=== PATIENT | female | born 1960 | race American Indian/Alaskan Native ===

== ENCOUNTER → 2017-08-31 | Outpatient (CLI) | payer BC | LOC: MAMMO 09:50 → RAD 10:00 → MAMMO 10:00 | DX: Z12.31 Encounter for screening mammogram for malignant neoplasm of breast (principal); R92.8 Other abnormal and inconclusive findings on diagnostic imaging of breast ==

== ENCOUNTER → 2017-09-08 | Outpatient (CLI) | payer BC | LOC: MAMMO 12:00 | DX: C50.312 Malignant neoplasm of lower-inner quadrant of left female breast (principal); R92.8 Other abnormal and inconclusive findings on diagnostic imaging of breast ==

== ENCOUNTER → 2018-03-16 | Outpatient (CLI) | payer BC | LOC: MAMMO 07:16 | DX: Z08 Encounter for follow-up examination after completed treatment for malignant neoplasm (principal); Z85.3 Personal history of malignant neoplasm of breast; Z41.1 Encounter for cosmetic surgery ==

== ENCOUNTER → 2019-04-18 | Outpatient (CLI) | payer BC | LOC: MAMMO 15:59 | DX: Z12.31 Encounter for screening mammogram for malignant neoplasm of breast (principal); R92.0 Mammographic microcalcification found on diagnostic imaging of breast ==

== ENCOUNTER → 2019-04-26 | Outpatient (CLI) | payer BC | LOC: MAMMO 12:00 | DX: R92.2 Inconclusive mammogram (principal) ==

== ENCOUNTER → 2020-05-21 | Outpatient (CLI) | payer BC | LOC: MAMMO 09:59 | DX: Z12.31 Encounter for screening mammogram for malignant neoplasm of breast (principal) ==

== ENCOUNTER → 2021-05-20 | Outpatient (CLI) | payer BC | LOC: MAMMO 15:39 | DX: Z12.31 Encounter for screening mammogram for malignant neoplasm of breast (principal) ==

== ENCOUNTER → 2022-06-08 | Outpatient (CLI) | payer BC | LOC: MAMMO 16:00 | DX: Z12.31 Encounter for screening mammogram for malignant neoplasm of breast (principal); Z85.3 Personal history of malignant neoplasm of breast ==

== ENCOUNTER → 2023-09-13 | Outpatient (CLI) | payer BC | LOC: MAMMO 12:50 | DX: Z12.31 Encounter for screening mammogram for malignant neoplasm of breast (principal); Z90.12 Acquired absence of left breast and nipple ==

== ENCOUNTER → 2024-10-25 | Outpatient (CLI) | payer BC ==
[~2024-10-25] VITALS: Ht 172.7 cm; Wt 105.0 kg
[~2024-10-25] MED LIST: AMLODIPINE BESY10 MG PO; FENOFIBRATE160 MG PO; HCTZ 25MG25 MG PO; INSULIN HUMA100 U/ML SQ; MOUNJARO7.5 MG/0.5 SQ; NOVOLOG 100U100 U/ML SQ; OMEPRAZOLE40 MG PO; SERTRALINE HYD100 MG PO; VALSARTAN160 M1 PO
[2024-10-25 09:08] VITALS: BP 151/95
[2024-10-25 09:23] LABS: HEMATOCRIT 48.8 % (37.0-47.0)
--- NOTE | 2024-10-25 09:51 | NUR ---
PT HERE FOR THERAPEUTIC PHLEBOTOMY. HGB 16 AND HCT 48.8 PRIOR TO PHLEBOTOMY. BP 151/95. EDUCATION PROVIDED AND CONSENT FORM SIGNED. TIMEOUT DONE AT 0918. STARTED PHLEBOTOMY AT 09. STOPPED AT 943. TOTAL VOL OF BLOOD WITHDRAWN 500ML. PT MANUEL WELL. STATED SHE WAS A LITTLE LIGHT HEADED WITH SITTING UP. BP 163/96 LYING DOWN. AND BP 166/112 AFTER SITTING UP. LAB IN TO DRAW MORE BLOOD FOR TESTS ORDER BY [facility]. BP NOW 137/85. PT FEELING OK AND LEFT FACILITY AMBULATORY.
[2024-10-27 15:10] LABS: ERYTHROPOIETIN 15.4 mIU/mL (2.6-18.5)
== END ==
LOC: AMSURD 08:49 → LAB 08:49
PROVIDERS: Internal Medicine
DX: R79.89 Other specified abnormal findings of blood chemistry (principal)